=== PATIENT | male | born 1980 | race Caucasian/White ===

== ENCOUNTER 2025-02-07 18:59 | Emergency (ER) | payer OTHER ==
[~2025-02-07] VITALS: Ht 170.2 cm; Wt 74.8 kg
[2025-02-07 19:11] VITALS: BP 126/61; TEMP 98.7; O2SAT 100
[2025-02-07] MEDS ORDERED: CLIN300C12 PO (19:34)
[2025-02-07] MEDS ORDERED: CLINDAMYCIN HCL 150 MG CAPSULE ONE (19:41)
[2025-02-07] MEDS ORDERED: IBUPROFEN 600 MG TABLET ONE (19:42)
[2025-02-07] MEDS: IBUPROFEN 600 MG TABLET PO ONE (19:45)
[2025-02-07] MEDS: CLINDAMYCIN HCL 150 MG CAPSULE PO ONE (19:45)
== END 2025-02-07 19:46 | disposition home or self-care (01) ==
LOC: ER 18:59
DX: K08.89 Other specified disorders of teeth and supporting structures (principal); Z88.0 Allergy status to penicillin